=== PATIENT | male | born 1985 ===

== ENCOUNTER 2023-12-23 12:54 | Emergency (ER) | payer MEDICAID ==
[~2023-12-23] VITALS: Ht 167 cm; Wt 53.0 kg
[2023-12-23 16:13] VITALS: TEMP 97.7
[2023-12-23] MEDS ORDERED: NIZORAL SHAMPO120 M1 TP (17:42)
[2023-12-23 18:00] VITALS: BP 126/79; PULSE 80
== END 2023-12-23 18:00 | disposition home or self-care (01) ==
LOC: COL.ER 12:54
DX: L21.9 Seborrheic dermatitis, unspecified (principal)